=== PATIENT | female | born 1950 | race American Indian/Alaskan Native ===

== ENCOUNTER 2019-02-16 10:03 | Outpatient (CLI) | payer MEDICARE ==
--- NOTE | 2019-02-20 12:49 | Magnetic Resonance Report ---
BILATERAL BREAST MRI WITHOUT AND WITH CONTRAST: 02/16/19 10:03:00 CLINICAL: Family history of breast cancer, personal history of ALH and a new left nipple discharge. Ultrasound of the left breast is reported to be negative and she had a negative screening mammogram 02/09/19. COMPARISON:02/09/19, 02/04/18 and 02/04/17 mammograms. TECHNIQUE: Axial 1.0-mm T1 without, axial high resolution 2.0-mm T2 and axial 1.0-mm dynamic Vibrant high-resolution postcontrast T1 fat saturation sequences on a 1.5 Shanika magnet. The examination was performed with an 8 channel dedicated Sentinelle breast coil. Post processing with CAD and subtraction was performed on an [employer] workstation. 17.0 cc of Multihance was injected without incident for the contrast portion of the exam. Consent was obtained prior to the administration of the contrast. FINDINGS: Right: Mild background parenchymal enhancement. No mass or suspicious enhancement. No suspicious lymph nodes. Left: Mild background parenchymal enhancement. Lesion 1 is a relatively smooth mass at 4 o'clock 3.5 cm from the nipple. Only a small portion of the mass demonstrates enhancement and measures 3.5 x 3.0 x 2.4 mm. The mass is predominantly T2 hyperintense and measures 7 mm maximum dimension on the T2 sequence. The mass is associated with duct ectasia and it appears to be an intraductal mass which communicates with a 3.6 mm wide dilated duct that extends to the nipple orifice. It has a benign enhancement pattern with 55% type II plateau and 0% type III washout waveforms. Lesion 2 is an oval relatively smooth homogeneously enhancing mass in the upper outer quadrant 8.3 cm from the nipple. It measures 7.4 x 6.0 x 2.4 mm and demonstrates heterogeneous enhancement with 80% type II plateau and 1% type III washout. This lesion is not associated with a dilated duct and it is isointense with normal breast tissue on T2. Lesion 3 is an oval enhancing mass in the upper-outer quadrant 7.3 cm from the nipple. It measures 5.2 x 3.4 x 2.1 mm and demonstrates homogeneous enhancement with 100% type I persistent waveform. This lesion exhibits T2 hyperintensity similar to lesion 1 but is not associated with a dilated duct. No other mass or suspicious enhancement of the left breast. No suspicious lymph nodes. IMPRESSION: 1. 3 enhancing lesions of the left breast with morphology and enhancement patterns which are suggestive of benign papillomas. 2. Lesion 1 appears to be intraductal and is associated with duct ectasia extending to the nipple orifice. 3. Negative right breast. 4. No suspicious lymph nodes. RECOMMENDATION: Targeted left breast ultrasound to evaluate for correlating lesions which may be biopsied using ultrasound guidance. RIGHT BI-RADS 1 - - Negative LEFT BI-RADS 0--Needs Additional Imaging
== END 2019-02-16 10:04 | disposition home or self-care (01) ==
LOC: SPVIMAG 10:03
PROVIDERS: ATTEND Surgery
DX: D24.2 Benign neoplasm of left breast (principal); N64.52 Nipple discharge; E78.00 Pure hypercholesterolemia, unspecified; K21.9 Gastro-esophageal reflux disease without esophagitis
CPT/HCPCS: A9577; C8908; 77049

== ENCOUNTER 2019-03-01 09:40 | Outpatient (CLI) | payer MEDICARE ==
[2019-03-01 10:30] LABS: Hematocrit 40.9 % (30.3-42.9); Hemoglobin 13.4 gm/dl (10.1-14.3); Mean Corpuscular HGB Conc 33 % (30-34); Mean Corpuscular Volume 91 fl (79-97); Platelet Count 221 K/mm3 (140-440); Red Blood Count 4.49 M/mm3 (3.65-5.03); Red Cell Distribution Width 14.7 % (13.2-15.2)
[2019-03-01 10:39] LABS: Alanine Aminotransferase 21 units/L (7-56); Albumin 4.7 g/dL (3.9-5); BUN/Creatinine Ratio 20; Blood Urea Nitrogen 10 mg/dL (7-17); Calcium 9.5 mg/dL (8.4-10.2); Chol/HDL Ratio 2.09 %; HDL Cholesterol 66 mg/dL (40-59); Hemolysis Index 6; LDL Cholesterol,Direct 72 mg/dL (50-130)
== END 2019-03-01 09:41 | disposition home or self-care (01) ==
LOC: LAB 09:40
PROVIDERS: ATTEND Internal Medicine
DX: Z00.01 Encounter for general adult medical examination with abnormal findings (principal); E11.9 Type 2 diabetes mellitus without complications; E78.2 Mixed hyperlipidemia; G47.00 Insomnia, unspecified; E78.00 Pure hypercholesterolemia, unspecified; K21.9 Gastro-esophageal reflux disease without esophagitis
CPT/HCPCS: 36415; 80053; 80061; 82306; 82607; 83036; 85027

== ENCOUNTER 2019-03-09 13:00 | Outpatient (CLI) | payer MEDICARE ==
--- NOTE | 2019-03-09 16:25 | Ultrasound Report ---
LEFT BREAST ULTRASOUND: 03/09/19 13:00:00 CLINICAL: History of recent clear and bloody left nipple discharge and 3 lesions identified by recent MRI with features suggestive of papillomas. COMPARISON: 02/16/19 FINDINGS: Ultrasound of the left breast was performed from 1 o'clock to 5 o'clock and demonstrated no mass to correlate with the recent MRI findings. The technologist measured a few things but I could not reproduce her findings and I could not identify anything definitive to correlate with the MRI lesions. IMPRESSION: Negative left breast ultrasound. Recommend management based on MRI findings with a repeat left breast MRI in 6 months. BI-RADS 1 - - Negative
== END 2019-03-09 13:01 | disposition home or self-care (01) ==
LOC: SPVWC 13:00
PROVIDERS: ATTEND Surgery
DX: D24.2 Benign neoplasm of left breast (principal); N64.52 Nipple discharge; E78.00 Pure hypercholesterolemia, unspecified; K21.9 Gastro-esophageal reflux disease without esophagitis

== ENCOUNTER 2019-04-12 06:07 | Day surgery (SDC) | payer MEDICARE ==
[~2019-04-12 06:07] MED LIST: ANCEF/STERILE WATER 2 GM/20 ML 2 GM/20 ML SYRINGE IV NR; MARCAINE 0.25% INFILTRATI ONE; WATER FOR IRRIG STERILE IR ONE; XYLOCAINE 1% 20 mL INFILTRATI ONE
[2019-04-12] MEDS ORDERED: NACL BACTERIOSTATIC INFILTRATI ONE (06:24)
[2019-04-12] MEDS ORDERED: VERSED IV NR (07:00)
[2019-04-12] MEDS ORDERED: LACTATED RINGERS 1,000 ML IV SCH (07:00)
[2019-04-12] MEDS ORDERED: SUBLIMAZE ONE (07:35)
[2019-04-12] MEDS ORDERED: ZOFRAN ONE (07:35)
[2019-04-12] MEDS ORDERED: DIPRIVAN 10 MG/ML IV ONE (07:36)
--- NOTE | 2019-04-12 08:02 | Anesthesia Consultation ---
Anesthesia Consult and Med Hx Date of service: 04/12/19 - Airway Anesthetic Teeth Evaluation: Good ROM Head & Neck: Adequate Mental/Hyoid Distance: Adequate Mallampati Class: Class III Intubation Access Assessment: Possibly Difficult - Pulmonary Exam CTA: Yes - Cardiac Exam Cardiac Exam: RRR - Pre-Operative Health Status ASA Pre-Surgery Classification: ASA3 Proposed Anesthetic Plan: General - Pulmonary Hx Smoking: No Hx Respiratory Symptoms: No Hx Sleep Apnea: Yes (no CPAP) - Cardiovascular System Hx Hypertension: No Hx Heart Attack/AMI: No Hx Cardia Arrhythmia: No - Central Nervous System CVA: No - Gastrointestinal Hx Gastroesophageal Reflux Disease: Yes (diet controlled) - Endocrine Hx Renal Disease: No Hx Liver Disease: No Hx Non-Insulin Dependent Diabetes: Yes Hx Thyroid Disease: No - Other Systems Hx Obesity: No - Additional Comments Anesthesia Medical History Comments: No hx anesthetic complications.
--- NOTE | 2019-04-12 08:17 | Anesthesia Day of Surgery ---
Anesthesia Day of Surgery - Day of Surgery Patient Examined: Yes Patient H&P Reviewed: Yes Patient is NPO: Yes
[2019-04-12] MEDS ORDERED: XYLOCAINE 1% 20 mL ONE (08:22)
[2019-04-12] MEDS ORDERED: MARCAINE 0.25% INFILTRATI ONE ×2 (08:23→09:21)
[2019-04-12] MEDS ORDERED: BENADRYL ONE (08:50)
[2019-04-12] MEDS ORDERED: ROBINUL ONE (08:50)
[2019-04-12] MEDS ORDERED: WATER FOR IRRIG STERILE IR ONE (09:12)
[2019-04-12] MEDS ORDERED: XYLOCAINE 1% 20 mL INFILTRATI ONE (09:21)
--- NOTE | 2019-04-12 09:39 | Short Stay Summary ---
Short Stay Documentation Date of service: 04/12/19 - History H&P: obtained from office - Allergies and Medications Current Medications: Allergies No Known Drug Allergies Allergy (Verified 04/07/19 15:33) Unknown Home Medications Medication Instructions Recorded Confirmed Last Taken Type Montelukast [Singulair] 10 mg PO QPM 04/07/19 04/07/19 04/11/19 18:00 History Rosuvastatin Calcium 10 mg PO QHS 04/07/19 04/07/19 04/11/19 18:00 History metFORMIN [Glucophage] 500 mg PO QDAY 04/07/19 04/07/19 04/11/19 18:00 History Aspirin EC 81 mg PO QDAY 04/12/19 04/12/19 04/04/19 History Active Medications Hydromorphone HCl (Dilaudid) 0.5 mg IV Q10MIN PRN PRN Reason: Pain , Severe (7-10) Stop: 04/12/19 18:00 Cefazolin Sodium (Ancef/Sterile Water 2 Gm/20 Ml) 2 gm in 20 mls @ 80 mls/hr IV PREOP NR; Protocol Stop: 04/12/19 23:59 Lactated Ringer's (Lactated Ringers) 1,000 mls @ 100 mls/hr IV DIRECT YECENIA Last Admin: 04/12/19 07:10 Dose: 100 mls/hr Documented by: Midazolam HCl (Versed) 2 mg IV PREOP NR Stop: 04/12/19 23:59 Last Admin: 04/12/19 07:27 Dose: 2 mg Documented by: - Brief post op/procedure progress note Date of procedure: 04/12/19 Pre-op diagnosis: Left nipple discharge Post-op diagnosis: same Procedure: Left nipple terminal duct excisional biopsy Anesthesia: GETA Findings: Left terminal duct excision, clear nipple discharge noted at center at 12:00 nipple Surgeon: LAYLA PAREKH Estimated blood loss: minimal Pathology: list (left terminal duct excisional biopsy) Specimen disposition: to lab Condition: stable - Disposition Condition at discharge: Good Disposition: DC- TO HOME OR SELFCARE Short Stay Discharge Plan Activity: other (no heavy lifting) Diet: regular Wound: keep clean and dry (may shower in 48 hours; no baths, pools or lakes; do not rub or scrub incision) Follow up with: COBY MADRID MD [Primary Care Provider] - 7 Days LAYLA PAREKH MD [Staff Physician] - 7 Days
--- NOTE | 2019-04-12 09:50 | Operative Report ---
Operative Report Operative Report: Date of procedure:04/12/2019 Pre-operative diagnosis: Left clear spontaneous nipple discharge Post-operative diagnosis:Same Procedure name(s): Left breast terminal duct excisional biopsy Surgeon: Rosy Bettencourt M.D. Anesthesia: General EBL: Minimal Findings: Left nipple terminal duct excision with duct identified at 12:00 center nipple of clear discharge Drains: None Complication: None Disposition: PACU in good condition Indications: This is a 68 year old with recent left breast clear spontaneous nipple discharge. Patient high risk for breast cancer given family history. Recent diagnostic left mammogram and ultrasound with no suspicious findings. Breast MRI findings of probable left breast papillomas and unable to be biopsied. Given clinical findings of clear spontaneous nipple discharge, terminal duct excisional biopsy recommended to rule out malignancy. Patient wished to proceed with the above procedure. Procedure: Patient is taken to the operating room and positioned supine on the operating table. General anesthesia was administered. Left breast was prepped and draped in the normal sterile operative fashion. Area of concern of clear nipple discharge was noted at the 12:00 center of nipple. A right para-areola incision is made at the areola skin margin and the areola flap was elevated exposing the underlying ducts. The duct of clear discharge was found and cannulated appropriately. Dissection was then carried underneath the nipple taking care not to render the nipple ischemic. Dissection was carried down to include adjacent terminal ducts for approximately 3 cm distal to the nipple area itself. Hemostasis was achieved using the electrocautery. A suture was placed on the specimen at the site of the nipple for identification by the pathologist marking the terminal duct. The breast cavity was irrigated and hemostasis was noted. Deep sutures were placed to approximate the deep tissues using interrupted 3-0 Vicryl. The skin was then closed of subcuticular sutures usinng a running 4-0 monocryl followed by dermabond. The patient tolerated surgey very well and was awaken from anesthesia and then transported to PACU in good condition.
[2019-04-12] MEDS ORDERED: DILAUDID IV PRN (10:00)
[2019-04-12 10:37] VITALS: BP 119/71
--- NOTE | 2019-04-12 14:40 | Post Anesthesia Evaluation ---
- Post Anesthesia Evaluation Patient Participated: Yes Airway Patent: Yes Stable Respiratory Function: Yes Nausea/Vomiting: No Temp > 96.8F: Yes Pain Manageable: Yes Adequeate Hydration: Yes Anesthesia Complications: No
== END 2019-04-12 06:08 | disposition home or self-care (01) ==
LOC: OR 06:07
PROVIDERS: ATTEND Surgery
DX: D24.2 Benign neoplasm of left breast (principal); E11.39 Type 2 diabetes mellitus with other diabetic ophthalmic complication; H40.9 Unspecified glaucoma; E78.00 Pure hypercholesterolemia, unspecified; G47.30 Sleep apnea, unspecified; K21.9 Gastro-esophageal reflux disease without esophagitis; N60.42 Mammary duct ectasia of left breast; Z79.82 Long term (current) use of aspirin; Z79.84 Long term (current) use of oral hypoglycemic drugs; Z98.41 Cataract extraction status, right eye; Z98.891 History of uterine scar from previous surgery; Z80.3 Family history of malignant neoplasm of breast; Z98.890 Other specified postprocedural states; Z79.899 Other long term (current) drug therapy
CPT/HCPCS: 19120; 82962; 88307; J0690; J1170; J1200; J2250; J2405; J2704; J3010; J7120

== ENCOUNTER 2019-05-19 09:45 | Outpatient (CLI) | payer MEDICARE ==
[2019-05-19 11:15] LABS: Chol/HDL Ratio 1.91 %
== END 2019-05-19 09:46 | disposition home or self-care (01) ==
LOC: LAB 09:45
PROVIDERS: ATTEND Internal Medicine
DX: E78.2 Mixed hyperlipidemia (principal); E11.9 Type 2 diabetes mellitus without complications; E78.00 Pure hypercholesterolemia, unspecified; K21.9 Gastro-esophageal reflux disease without esophagitis
CPT/HCPCS: 36415; 80061; 83036

== ENCOUNTER 2019-07-29 20:29 | Emergency (ER) | payer MEDICARE ==
--- NOTE | 2019-07-29 21:16 | Event Note ---
ED Screening Note Date of service: 07/29/19 Time: 21:13 ED Screening Note: 69 y o female presents to ed with right arm pain with some discoloring to her arm denies injury This initial assessment/diagnostic orders/clinical plan/treatment(s) is/are subject to change based on patients health status, clinical progression and re- assessment by fellow clinical providers in the ED. Further treatment and workup at subsequent clinical providers discretion. Patient/guardian urged not to elope from the ED as their condition may be serious if not clinically assessed and managed. Initial orders include: d-dimer
[2019-07-29] MEDS ORDERED: MORPHINE IV ONE (22:08)
[2019-07-29] MEDS ORDERED: ZOFRAN IV ONE (22:09)
[2019-07-29 22:37] LABS: Basophils # (Auto) 0.1 K/mm3 (0.0-0.1); Eosinophils # (Auto) 0.1 K/mm3 (0.0-0.4); Eosinophils % (Auto) 1.2 % (0.0-4.3); Hemoglobin 13.7 gm/dl (10.1-14.3); Lymphocytes % (Auto) 33.6 % (13.4-35.0); Mean Corpuscular HGB Conc 33 % (30-34); Mean Corpuscular Volume 90 fl (79-97); Monocytes # (Auto) 0.9 K/mm3 (0.0-0.8); Monocytes % (Auto) 10.2 % (0.0-7.3); Platelet Count 200 K/mm3 (140-440); Red Blood Count 4.53 M/mm3 (3.65-5.03); Red Cell Distribution Width 15.2 % (13.2-15.2)
[2019-07-29 23:03] LABS: Alanine Aminotransferase 26 units/L (7-56); Albumin 4.9 g/dL (3.9-5); BUN/Creatinine Ratio 13; Blood Urea Nitrogen 12 mg/dL (7-17); Calcium 9.9 mg/dL (8.4-10.2); Hemolysis Index 16
--- NOTE | 2019-07-29 23:22 | Emergency Department Report ---
Upper Extremity - HPI Chief Complaint: Extremity Injury, Upper Stated Complaint: PAIN IN RT ARM,BRUISES AND POSS BLOOD CLOTS Time Seen by Provider: 07/29/19 21:13 Upper Extremity: Right Shoulder, Right Arm, Right Elbow, Right Forearm Occurred When: 2 Days Mechanism: Fall Severity: moderate Symptoms: Yes Pain with Movement, No Deformity, No Limited Range of Movement, No Numbness, No Weakness, No Swelling, No Bruising/Ecchymosis, No Laceration or Abrasion Other History: Patient presents to ER with right arm pain, for two days, also noticed small bruise in right forearm. no redness, no swelling. ED Review of Systems ROS: Stated complaint: PAIN IN RT ARM,BRUISES AND POSS BLOOD CLOTS Other details as noted in HPI Comment: All other systems reviewed and negative Endocrine: denies: excessive sweating, flushing Gastrointestinal: denies: abdominal pain Genitourinary: denies: urgency Musculoskeletal: myalgia Psychiatric: as per HPI ED Past Medical Hx - Past Medical History Previous Medical History?: Yes Hx Hypertension: No Hx Heart Attack/AMI: No Hx Diabetes: Yes (BORDERLINE) Hx GERD: Yes Hx Liver Disease: No Hx Renal Disease: No Hx HIV: (NOT TESTED) Additional medical history: High Cholesterol, glaucoma - Surgical History Past Surgical History?: Yes Additional Surgical History: Right eye surgery, Left breast surgery March 2019 benign tumor removed and Ducts - Social History Smoking Status: Never Smoker Substance Use Type: None - Medications Home Medications: Home Medications Medication Instructions Recorded Confirmed Last Taken Type Montelukast [Singulair] 10 mg PO QPM 04/07/19 04/07/19 04/11/19 18:00 History Rosuvastatin Calcium 10 mg PO QHS 04/07/19 04/07/19 04/11/19 18:00 History metFORMIN [Glucophage] 500 mg PO QDAY 04/07/19 04/07/19 04/11/19 18:00 History Aspirin EC [Halfprin EC] 81 mg PO QDAY 04/12/19 04/12/19 04/04/19 History HYDROcodone/APAP 5-325 [[place] 1 each PO Q6HR PRN #20 tablet 04/12/19 Unknown Rx 5/325] Cyclobenzaprine [Flexeril] 10 mg PO TID PRN #15 tablet 07/29/19 Unknown Rx Upper Extremity Exam - Exam General: Vital signs noted. No distress. Alert and acting appropriately. Head and Torso: No HEENT Abnormality, No Neck Tenderness, No Chest/Lungs Abnormality, No Abdominal Tenderness, No Back Tenderness Shoulder Exam: No Shoulder Tenderness, No Clavicle Tenderness, No Normal Range of Motion in Shoulder, No Shoulder Deformity, No AC Joint Tenderness Arm Exam: No Arm/Humerus Tenderness, No Arm Deformity Elbow: No Elbow Tenderness, No Normal Range of Motion in Elbow, No Elbow Deformity Forearm: No Forearm Tenderness, No Forearm Deformity, No Pain with Pronation, No Pain with Supination Wrist: No Wrist Tenderness, No Normal ROM in Wrist, No Wrist Deformity, No Snuffbox Tenderness, No Pain with Axial Thumb Compression Hand: No Hand Tenderness, No Hand Deformity, No Digit Tenderness, No Normal ROM in Digit(s), No Digit(s) Deformity CMS Exam: No Broken Skin, No Normal Distal Pulses, No Normal Capillary Refill, No Normal Distal Sensation ED Course Vital Signs 07/29/19 07/29/19 07/29/19 21:13 22:08 22:41 Temperature 98.4 F Pulse Rate 95 H 79 Respiratory 16 16 16 Rate Blood Pressure 118/66 Blood Pressure 123/71 [Left] O2 Sat by Pulse 96 96 Oximetry ED Medical Decision Making - Lab Data Result diagrams: 07/29/19 22:29 07/29/19 22:29 - Medical Decision Making d-dimer neg, blood work unremarkable. good pulses, patient sleeps with arm under head, also c/o neck pain. dif dx: pinch nerve, myalgia, Critical care attestation.: If time is entered above; I have spent that time in minutes in the direct care of this critically ill patient, excluding procedure time. ED Disposition Clinical Impression: Arm pain Qualifiers: Laterality: right Qualified Code(s): M79.601 - Pain in right arm Disposition: - TO HOME OR SELFCARE Is pt being admited?: No Does the pt Need Aspirin: No Condition: Stable Instructions: Arthralgia (ED) Prescriptions: Cyclobenzaprine [Flexeril] 10 mg PO TID PRN #15 tablet PRN Reason: Muscle Spasm Referrals: PRIMARY CAREMD [Primary Care Provider] - 3-5 Days MARY FAIR MD [Staff Physician] - 3-5 Days
[2019-07-29 23:44] VITALS: BP 116/68
== END 2019-07-29 23:43 | disposition home or self-care (01) ==
LOC: ED 20:29
DX: M79.601 Pain in right arm (principal)
CPT/HCPCS: 36415; 80053; 84484; 85025; 85379; 93005; 93010; 96374; 96375; 99283; J2270; J2405

== ENCOUNTER 2019-09-28 10:13 | Outpatient (CLI) | payer MEDICARE ==
--- NOTE | 2019-10-02 15:44 | Magnetic Resonance Report ---
BILATERAL BREAST MR WITHOUT AND WITH GADOLINIUM INDICATION: High risk for breast cancer given a personal history of left breast a.l. age and a famil y history of breast cancer. She had a left nipple terminal duct excision or biopsy 04/12/2019 and path ology revealed benign intraductal papilloma that was completely excised. COMPARISONS: 02/16/2019 TECHNIQUE: Axial 1.0 mm T1 without, axial high-resolution 2.0 mm T2 and axial 1.0 mm dynamic vibrant high-resolution postcontrast T1 fat saturation sequences on a 1.5 Shanika magnet. The examination was p erformed with an 8-channel dedicated Sentinelle breast coil. Post-processing with CAD and subtraction was performed on an [employer] workstation. 16.0 cc of MultiHance was injected without incident for the c ontrast portion of the exam. Consent was obtained prior to the administration of the contrast. FINDINGS: RIGHT BREAST: Minimal background parenchymal enhancement. No mass or suspicious enhancement. No suspi cious right axillary or right internal mammary lymph nodes. LEFT BREAST: Minimal background parenchymal enhancement. Benign retroareolar nonenhancing postsurgica l scar. The previously described lesion 1 at 4:00 has been excised. However, that there are no vidal us enhancing lesions clustered together in the upper outer quadrant with characteristics suggestive o f papillomas. Lesion 1 is located approximately 10 cm from the nipple and measures 14.5 x 10.0 x 4.5 mm. It demonstrates heterogeneous enhancement with mixed kinetics, 187% peak enhancement and 67% type III washout. This lesion has enlarged since the last MRI. Lesion 2 is a stable enhancing lesion in t he upper outer quadrant approximately 8 cm from the nipple. It measures 4.8 x 4.2 x 1.9 mm and demons trates heterogeneous enhancement with mixed kinetics, 174% peak enhancement and 46% type III washout. There are at least four lesions clustered together in the upper outer quadrant spanning a distance o f approximately 3.4 x 2.4 cm x 2.0. Lesion 1 is included as one of these lesions lesion 2 is more ant erior and excluded from this group. No enhancing mass or other suspicious enhancement. IMPRESSION: 1. At least 5 suspicious enhancing lesions clustered in the upper outer left breast. The largest lesi on measures 14.5 mm and it has enlarged since 02/16/2019. All of these lesions are located 8 cm or gre ater from the nipple and are therefore posterior to the site of the surgical excision. All of the les ions are more prominent than on the last MRI. Recommend MRI biopsy of the largest lesion and MRI biop sy of the more posterior lesion in the group. This would facilitate surgical excision of the group of lesions. 2. Negative right breast. 3. No suspicious lymph nodes. BI-RADS Category 4: Suspicious Signer Name: Jamel Hayes MD Signed: 10/02/2019 3:40 PM Workstation Name: [id number]
== END 2019-09-28 10:14 | disposition home or self-care (01) ==
LOC: SPVIMAG 10:13
PROVIDERS: ATTEND Surgery
DX: N60.82 Other benign mammary dysplasias of left breast (principal); Z80.3 Family history of malignant neoplasm of breast
CPT/HCPCS: A9577; C8908; 77049

== ENCOUNTER 2019-10-17 09:27 | Outpatient (CLI) | payer MEDICARE ==
--- NOTE | 2019-10-17 14:42 | Magnetic Resonance Report ---
MRI GUIDED NEEDLE BIOPSY AT 2 SITES LEFT BREAST INDICATION: Suspicious nonmass enhancement. COMPARISONS: MRI Breast Bilateral 10/08/2019 TECHNIQUE: Axial 1.0 mm T1 without and axial 1.0 mm dynamic vibrant high-resolution postcontrast T1 f at saturation sequences on a 1.5 Shanika magnet. 16.0 cc of MultiHance was injected without incident fo r the contrast portion of the exam. Consent was obtained prior to the administration of the contrast. Lesion targeting was performed with [employer] software. FINDINGS: A timeout was called and the skin was marked. A localization scan was performed and 2 lesions were ta rgeted. Using 1% lidocaine for superficial anesthesia and 2% lidocaine with epinephrine for deep anes thesia, a 9 gauge vacuum-assisted biopsy was performed at 2 sites correlate with lesions identified o n the prior study. Satisfactory targeting and sampling was confirmed with imaging. Multiple cores wer e obtained and placed in formalin. Localization clips were placed at both sites. The patient tolerate d the procedure well and there were no apparent complications. Hemostasis was achieved with minimal e ffort. Steri-Strips and sterile dressings were applied. 2 view mammogram demonstrated concordant clip deployment at both sites. The patient left the department in good condition and was given instructions for wound care and follo w-up. IMPRESSION: Uncomplicated MRI guided left breast biopsy with clip placement at 2 sites. BI-RADS Category 4: Suspicious Signer Name: Jamel Hayes MD Signed: 10/17/2019 2:38 PM Workstation Name: [id number]
--- NOTE | 2019-10-18 12:17 | Mammography Report ---
LEFT DIGITAL DIAGNOSTIC MAMMOGRAM CLINICAL: For clip placement after MRI guided 2 site needle biopsy. COMPARISON: 09/14/2019 FINDINGS: 2 new biopsy clips are identified in the upper outer quadrant and are located approximately 12 mm part. IMPRESSION: Concordant clip deployment after MRI guided needle biopsy at 2 sites. BI-RADS Category 4: Suspicious Signer Name: Jamel Hayes MD Signed: 10/18/2019 12:13 PM Workstation Name: [id number]
== END 2019-10-17 09:28 | disposition home or self-care (01) ==
LOC: SPVIMAG 09:27
PROVIDERS: ATTEND Surgery
DX: R92.2 Inconclusive mammogram (principal); N60.82 Other benign mammary dysplasias of left breast; G47.30 Sleep apnea, unspecified; K21.9 Gastro-esophageal reflux disease without esophagitis; E11.39 Type 2 diabetes mellitus with other diabetic ophthalmic complication; H40.9 Unspecified glaucoma; Z80.3 Family history of malignant neoplasm of breast; Z79.899 Other long term (current) drug therapy; Z79.84 Long term (current) use of oral hypoglycemic drugs; Z79.82 Long term (current) use of aspirin; Z98.41 Cataract extraction status, right eye; Z98.891 History of uterine scar from previous surgery
CPT/HCPCS: 19085; 19086; 77065; 88305; A4648; A9577; 88341; 88342

== ENCOUNTER 2019-12-04 06:45 | Day surgery (SDC) | payer MEDICARE ==
[~2019-12-04 06:45] MED LIST changes: -ANCEF/STERILE WATER 2 GM/20 ML 2 GM/20 ML SYRINGE IV NR; -MARCAINE 0.25% INFILTRATI ONE; -WATER FOR IRRIG STERILE IR ONE; -XYLOCAINE 1% 20 mL INFILTRATI ONE; +ceFAZolin/Water 2 GM/20 ML 2 GM/20 ML SYRINGE IV NR
[2019-12-04] MEDS ORDERED: BACTERIOSTATIC SODIUM CHLORIDE 0.9% 30 ML VIAL INFILTRATI ONE (07:10)
[2019-12-04] MEDS ORDERED: fentaNYL 100 MCG/2 ML INJ IV PRN (07:49)
--- NOTE | 2019-12-04 07:49 | Anesthesia Consultation ---
Anesthesia Consult and Med Hx Date of service: 12/04/19 - Airway Anesthetic Teeth Evaluation: Good ROM Head & Neck: Adequate Mental/Hyoid Distance: Adequate Mallampati Class: Class II Intubation Access Assessment: Probably Good - Pulmonary Exam CTA: Yes - Cardiac Exam Cardiac Exam: RRR - Pre-Operative Health Status ASA Pre-Surgery Classification: ASA2 Proposed Anesthetic Plan: General - Pulmonary Hx Smoking: No Hx Respiratory Symptoms: No Hx Sleep Apnea: Yes (noncompliant with CPAP) - Cardiovascular System Hx Hypertension: No Hx Heart Attack/AMI: No - Central Nervous System CVA: No Hx Psychiatric Problems: No - Gastrointestinal Hx Gastroesophageal Reflux Disease: Yes (diet controlled) - Endocrine Hx Renal Disease: No Hx Liver Disease: No Hx Non-Insulin Dependent Diabetes: Yes Hx Thyroid Disease: No - Additional Comments Anesthesia Medical History Comments: No hx anesthetic complications.
--- NOTE | 2019-12-04 07:49 | Anesthesia Day of Surgery ---
Anesthesia Day of Surgery - Day of Surgery Patient Examined: Yes Patient H&P Reviewed: Yes Patient is NPO: Yes
[2019-12-04] MEDS ORDERED: BUPIVACAINE-EPINEPHRINE/PF 0.25%-1:200,000 (30 ML) VIAL INFILTRATI ONE (07:51)
[2019-12-04] MEDS ORDERED: BUPIVACAINE/PF (0.25%) 2.5 MG/ML 30 ML VIAL INFILTRATI ONE ×2 (07:52→09:57)
[2019-12-04] MEDS ORDERED: LIDOCAINE (1%) 10 MG/1 ML VIAL 20 ML MDV ONE ×2 (07:52→08:00)
[2019-12-04] MEDS ORDERED: MIDAZOLAM 2 MG/2 ML INJ IV NR (08:00)
[2019-12-04] MEDS ORDERED: LACTATED RINGERS 1,000 ML IV SCH (08:00)
[2019-12-04] MEDS ORDERED: CELECOXIB 200 MG CAP PO NR (08:00)
[2019-12-04] MEDS ORDERED: GABAPENTIN 300 MG CAP PO NR (08:00)
[2019-12-04] MEDS ORDERED: LIDOCAINE (1%) 10 MG/1 ML VIAL 20 ML MDV INFILTRATI ONE ×2 (09:00→09:58)
[2019-12-04] MEDS ORDERED: fentaNYL 100 MCG/2 ML INJ ONE (09:06)
[2019-12-04] MEDS ORDERED: propofoL 200 MG/20 ML VIAL IV ONE (09:07)
[2019-12-04] MEDS ORDERED: LIDOCAINE MPF (2%) 20 MG/1 ML VIAL 5 ML ONE (09:09)
[2019-12-04] MEDS ORDERED: PHENYLEPHRINE/NS 1,000 MCG/10 ML SYRINGE (OR USE) IV ONE (09:43)
[2019-12-04] MEDS ORDERED: dexAMETHasone 20 MG/5 ML VIAL ONE (10:04)
[2019-12-04] MEDS ORDERED: ONDANSETRON 4 MG/2 ML INJ ONE (10:04)
[2019-12-04] MEDS ORDERED: LACTATED RINGERS 1,000 ML ONE (10:52)
--- NOTE | 2019-12-04 11:06 | Mammography Report ---
NEEDLE LOCALIZATION HOOKWIRE PLACEMENT LEFT BREAST X2 INDICATION: 2 left breast lesions. Status post MRI guided biopsy of 2 lesions on 10/17/2019. Pathology revealed a typical ductal hyperplasia for one lesion and papilloma for second lesion. COMPARISON: 10/17/2019 FINDINGS: Using mammographic guidance, sterile technique and local anesthesia, 2 5 cm [place] 2 needles with ho okwires were placed from a lateral approach to localize 2 biopsy clips. Satisfactory placement was co nfirmed by orthogonal views. The hookwires were deployed and the needles removed. The patient tolerat ed the procedure well and there were no apparent complications. She was taken to the surgical suite i n good condition. IMPRESSION: 1. Uncomplicated needle localization and hookwire placement x2 left breast.. Signer Name: Jamel Hayes MD Signed: 12/04/2019 11:02 AM Workstation Name: [id number]
--- NOTE | 2019-12-04 11:06 | Operative Report ---
Operative Report Operative Report: Operative Report: Date of Service: December 04, 2019 Preoperative diagnosis: Left breast atypia, ALH and papillioma of the upper outer quadrant Postoperative diagnosis: Same Procedure: Left breast papilloma and atypia excisional biopsy of the upper outer quadrant Surgeon: Rosy Bettencourt M.D. Anesthesia: General Findings: Left breast radiograph specimen with clips and wires present Complications: None Drains: None Estimated blood loss: Minimal Disposition: PACU in good condition Indication for operative procedure: This is a 69-year-old lady high risk for breast cancer given personal history of ALH and recent breast MRI biopsy findings. Recent left breast MRI guided breast biopsy with pathology findigns of lesion #1 with ALH and atypia and lesion #2 papilloma an atypia. Recommendations are for excisional biopsy to rule out malignancy given high risk breast cancer lesions. Patient wished to proceed with the above procedure. The patient was procedure in detail: Radiology placed wires to localize both areas of concern at location of clips. The patient was taken to the operating room and was laid supine. General anesthesia was administered. The left breast was prepped and draped in the normal sterile operative fashion. Timeout was performed. The wires were identified. A lateral breast incision was made around the 2:00 position with a 15 blade knife with dissection taken down to the subcutaneous tissues. First began raising of the medial flap with removal of wires from the skin and dissection carried down posteriorly, followed by raising of the superior, lateral, and inferior flaps being raised and taken down posteriorly. The wires were not encountered. The area of concern was then removed with the aid of the Bovie cautery. The specimen was sent to radiology with radiograph specimen with clip and wire present and then sent to pathology. Hemostasis was obtained using the Bovie cautery. Breast cavity was anesthesized with 1% lidocaine and quarter percent marcaine. The breast cavity was irrigated and suctioned. The deep breast tissues were approximated and closed using interrupted 3-0 Vicryl and skin brought together and closed using a running 4-0 Monocryl followed by dermabond. She tolerated surgery very well and was awakened from anesthesia without any complication and transported to PACU in good condition.
--- NOTE | 2019-12-04 11:09 | Short Stay Summary ---
Short Stay Documentation Date of service: 12/04/19 - History H&P: obtained from office - Allergies and Medications Current Medications: Allergies No Known Drug Allergies Allergy (Verified 04/07/19 15:33) Unknown Home Medications Medication Instructions Recorded Confirmed Last Taken Type Montelukast [Singulair] 10 mg PO QPM 04/07/19 11/28/19 12/03/19 17:00 History Rosuvastatin Calcium 10 mg PO QHS 04/07/19 11/28/19 12/03/19 17:00 History metFORMIN [Glucophage] 500 mg PO QDAY 04/07/19 11/28/19 12/03/19 17:00 History Cyclobenzaprine [Flexeril] 10 mg PO TID PRN #15 tablet 07/29/19 11/28/19 Unknown Rx Latanoprost 0.005% [Xalatan 0.005%] 1 drop OP QPM 11/28/19 11/28/19 12/04/19 05:00 History Multivit-Minerals/Folic Acid 0.4 mg PO QDAY 11/28/19 11/28/19 Unknown History [Adult One Daily Multivit Tab] Timolol Maleate [Istalol] 2.5 ml OP QAM 11/28/19 11/28/19 12/04/19 05:00 History Ubidecarenone [Co Q-10] 10 mg PO DAILY 11/28/19 11/28/19 Unknown History HYDROcodone/APAP 5-325 [[place] 1 each PO Q6HR PRN #12 tablet 12/04/19 Unknown Rx 5/325] Active Medications Celecoxib (Celebrex) 200 mg PO PREOP NR Stop: 12/04/19 16:00 Last Admin: 12/04/19 09:18 Dose: 200 mg Documented by: Fentanyl (Sublimaze) 50 mcg IV Q5MIN PRN PRN Reason: Pain , Severe (7-10) Stop: 12/04/19 22:00 Gabapentin (Gabapentin) 300 mg PO PREOP NR Stop: 12/04/19 16:00 Last Admin: 12/04/19 09:18 Dose: 300 mg Documented by: Cefazolin Sodium (Ancef/Sterile Water 2 Gm/20 Ml) 2 gm in 20 mls @ 80 mls/hr IV PREOP NR; Protocol Stop: 12/04/19 23:59 Lactated Ringer's (Lactated Ringers) 1,000 mls @ 100 mls/hr IV DIRECT YECENIA Last Admin: 12/04/19 09:19 Dose: 100 mls/hr Documented by: Midazolam HCl (Versed) 2 mg IV PREOP NR Stop: 12/04/19 23:59 Last Admin: 12/04/19 09:20 Dose: 2 mg Documented by: - Brief post op/procedure progress note Date of procedure: 12/04/19 Pre-op diagnosis: Left breast atypia and papilloma Post-op diagnosis: same Procedure: Left needle localization excisional biopsy Anesthesia: GETA Findings: wires and clips present Surgeon: LAYLA BETTENCOURT Estimated blood loss: minimal Pathology: list (left breast masses) Specimen disposition: to lab Condition: stable - Disposition Condition at discharge: Good Disposition: DC- TO HOME OR SELFCARE Short Stay Discharge Plan Activity: other (no heavy lifting) Diet: regular Wound: keep clean and dry (may shower in 24 hours; wear breast binder until seen by Dr. Bettencourt; no baths) Follow up with: COBY MADRID MD [Primary Care Provider] - 7 Days LAYLA BETTENCOURT MD [Staff Physician] - 7 Days Prescriptions: HYDROcodone/APAP 5-325 [[place] 5/325] 1 each PO Q6HR PRN #12 tablet PRN Reason: Pain
--- NOTE | 2019-12-04 11:25 | Mammography Report ---
SPECIMEN RADIOGRAPH LEFT BREAST INDICATION: POST EXC BX. COMPARISON: 10/17/2019 mammogram FINDINGS: 2 biopsy clips and 2 hook wires are identified within the specimen. IMPRESSION: 1. Excision of the targeted lesions.. Signer Name: Jamel Hayes MD Signed: 12/04/2019 11:20 AM Workstation Name: [id number]
[2019-12-04 11:42] VITALS: BP 122/66
--- NOTE | 2019-12-04 15:40 | Mammography Report ---
NEEDLE LOCALIZATION AND HOOKWIRE PLACEMENT LEFT BREAST X2 INDICATION: 2 left breast lesions. Status post MRI guided biopsy of 2 lesions on 10/17/2019. Patholo gy revealed atypical ductal hyperplasia for one lesion and papilloma for second lesion. COMPARISON: 10/17/2019 FINDINGS: Using mammographic guidance, sterile technique and local anesthesia, 2 5 cm [place] 2 need les with hookwires were placed from a lateral approach to localize [address] was confirmed by orthogonal views. The hookwires were deployed and the needles removed. The jack ent tolerated the procedure well and there were no apparent complications. She was taken to the [facility] in good condition. IMPRESSION: 1. Uncomplicated needle localization and hookwire placement x2 left breast.. Signer Name: Jamel Hayes MD Signed: 12/04/2019 3:36 PM Workstation Name: [id number]
--- NOTE | 2019-12-04 21:05 | Post Anesthesia Evaluation ---
- Post Anesthesia Evaluation Patient Participated: Yes Airway Patent: Yes Stable Respiratory Function: Yes Nausea/Vomiting: No Temp > 96.8F: Yes Pain Manageable: Yes Adequeate Hydration: Yes Anesthesia Complications: No Block Receding Appropriately: Not Applicable Patient on Ventilator: No
== END 2019-12-04 06:46 | disposition home or self-care (01) ==
LOC: OR 06:45
PROVIDERS: ATTEND Surgery
DX: N60.82 Other benign mammary dysplasias of left breast (principal); D24.2 Benign neoplasm of left breast; G47.30 Sleep apnea, unspecified; K21.9 Gastro-esophageal reflux disease without esophagitis; E11.9 Type 2 diabetes mellitus without complications; E78.00 Pure hypercholesterolemia, unspecified; Z79.84 Long term (current) use of oral hypoglycemic drugs; Z79.899 Other long term (current) drug therapy; Z98.890 Other specified postprocedural states; Z98.891 History of uterine scar from previous surgery; Z80.3 Family history of malignant neoplasm of breast
CPT/HCPCS: 19125; 19281; 19282; 76098; 82962; 88307; 88341; J0690; J1100; J2250; J2370; J2405; J2704; J3010; J7120; 88342

== ENCOUNTER 2021-07-24 10:16 | Outpatient (CLI) | payer MEDICARE ==
--- NOTE | 2021-07-24 16:01 | Mammography Report ---
DIGITAL SCREENING MAMMOGRAM WITH TOMOSYNTHESIS WITH CAD, 07/24/2021 CLINICAL INFORMATION / INDICATION: Routine Screening Mammography. TECHNIQUE: Digital bilateral 2D and 3D mammography with tomosynthesis was obtained in the craniocaud al and mediolateral oblique projections. Computer-Aided Detection (CAD) analysis was used for interp retation of this study. COMPARISON: 05/09/2020, 10/17/2019, 02/09/2019 FINDINGS: Breast Density: There are scattered areas of fibroglandular density. No dominant mass, suspicious calcifications, or architectural distortion in either breast. Postoperative changes are seen along the upper outer left breast with bilateral benign-appearing calc ifications. IMPRESSION: No mammographic evidence of malignancy. Follow up recommendation: Routine yearly BI-RADS Category 2: Benign. A "normal" or negative report should not discourage follow up or biopsy of a clinically significant f inding. A written summary of these findings will be mailed to the patient. The patient will be entered into a mammography reporting system which will generate a reminder letter for the patient's next appointmen t at the appropriate interval. The [employer] recommends yearly mammograms starting at age 40 and continuing as l vlad as a woman is in good health. Breast MRI is recommended for women with an approximate 20-25% or greater lifetime risk of breast cancer, including women with a strong family history of breast or ova johanna cancer or who have been treated for Hodgkin's disease. Signer Name: Galen Dawn MD Signed: 07/24/2021 3:57 PM Workstation Name: [id number]
== END 2021-07-24 10:17 | disposition home or self-care (01) ==
LOC: SPVWC 10:16
PROVIDERS: ATTEND Surgery
DX: Z12.31 Encounter for screening mammogram for malignant neoplasm of breast (principal); N64.89 Other specified disorders of breast
CPT/HCPCS: 77063; 77067